=== PATIENT | female | born 1975 | race Caucasian/White ===

== ENCOUNTER 2019-02-24 17:12 | Emergency (ER) | payer SELFPAY ==
[2019-02-24] MEDS ORDERED: KETOROLAC TROMETHAMINE INJ 30 MG/ML VIAL IV ONE (18:35)
--- NOTE | 2019-02-24 18:51 | ED.PDOC ---
History of Present Illness - General Chief Complaint: Back Pain or Injury Stated Complaint: BACK PAIN Time Seen by Provider: 02/24/19 18:34 Source: patient Exam Limitations: no limitations - History of Present Illness Initial Comments: Patient presents with lower back pain for 5 days. She says it started after she lifted a heavy object out of the car. The pain is bilateral with occasional radiation down the right leg. Worse with movement, better with rest. Sharp in nature. Denies previous injuries to the lower back. No other complaints. Timing/Duration: other - 5 days Severity: moderate Improving Factors: rest Worsening Factors: movement Associated Symptoms: denies symptoms Allergies/Adverse Reactions: Allergies NO KNOWN ALLERGY Allergy (Verified 02/24/19 18:05) Home Medications: Ambulatory Orders Acetaminophen W/ Codeine [Tylenol W/ CODEINE #3] 1 ea PO Q6HRS PRN #15 02/24/19 Cyclobenzaprine HCl [Flexeril] 10 mg PO TID PRN #20 tab 02/24/19 Review of Systems - Review of Systems Constitutional: States: no symptoms reported EENTM: States: no symptoms reported Respiratory: States: no symptoms reported Cardiology: States: no symptoms reported Gastrointestinal/Abdominal: States: no symptoms reported Genitourinary: States: no symptoms reported Musculoskeletal: States: see HPI Skin: States: no symptoms reported Neurological: States: no symptoms reported Endocrine: States: no symptoms reported Hematologic/Lymphatic: States: no symptoms reported Family Medical History - Family History Mother Family History: No Known Physical Exam - Physical Exam General Appearance: Alert Respiratory: lungs clear, normal breath sounds Cardiovascular/Chest: normal peripheral pulses, regular rate, rhythm Gastrointestinal/Abdominal: normal bowel sounds, non tender, soft Back Exam: no vertebral tenderness, other - cross leg raise mildly positive at 45 degrees. straight leg rais negative. Patient's pain is too severe for heel walking test. 2+ patellar reflexes bilaterally DTR: 2+: Patellar, left, Patellar, right Skin Exam: normal color Progress - Progress Progress: 02/24/19 20:04 Laboratory Tests 02/24/19 02/24/19 16:15 18:15 Urine Color Yellow Urine Appearance Sl cloudy Urine pH 7.0 Ur Specific [place] 1.020 Urine Protein Negative Urine Glucose (UA) Negative Urine Ketones Negative Urine Blood Moderate H Urine Nitrite Negative Urine Bilirubin Negative Urine Urobilinogen 0.2 Ur Leukocyte Esterase Negative Urine RBC 0-1 Urine WBC 1-3 Ur Epithelial Cells 1-3 Amorphous Sediment 3+ Urine Bacteria 1+ Urine HCG, Qual Negative Radiographs of the lumbar vertebrae show no fracture. Patient given Toradol 30 mg IM x one in the E.D. with significant pain reduction. Given RX for Tylenol #3 and Flexeril with instructions to follow up with her pcp next week. Care instructions given. E.R. warnings given. Questions were elicited and answered. Patient voiced understanding and agreement with the plan. Departure - Departure Clinical Impression: Low back sprain Disposition: Discharge to Home or Self Care Condition: Good Departure Forms: ED Discharge - Pt. Copy, Patient Portal Self Enrollment Instructions: DI for Low Back Pain, DI for Back Strain or Sprain Diet: resume usual diet Activity: increase activity as tolerated Prescriptions: Acetaminophen W/ Codeine [Tylenol W/ CODEINE #3] 1 ea PO Q6HRS PRN #15 PRN Reason: Pain Cyclobenzaprine HCl [Flexeril] 10 mg PO TID PRN #20 tab PRN Reason: Pain Home Medications: Ambulatory Orders Acetaminophen W/ Codeine [Tylenol W/ CODEINE #3] 1 ea PO Q6HRS PRN #15 02/24/19 Cyclobenzaprine HCl [Flexeril] 10 mg PO TID PRN #20 tab 02/24/19 Additional Instructions: See your regular doctor next week for further evaluation. Activity as tolerated. Do not lift more than 10 pounds for the next two weeks. Take medications as prescribed. Do not drive or drink alcohol after taking the prescribed pain medications.
[2019-02-24] MEDS ORDERED: KETOROLAC TROMETHAMINE INJ 30 MG/ML VIAL IM ONE (19:01)
[2019-02-24 19:41] VITALS: O2SAT 100
--- NOTE | 2019-02-24 19:57 | RAD ---
EXAM DESCRIPTION: Lumbar Spine 3 Views CLINICAL HISTORY: 43 years Female back pain after lifting heavy object COMPARISON: None TECHNIQUE: AP and lateral views of the lumbar spine as well as a coned down lateral view of the lumbosacral junction are obtained. FINDINGS: OSSEOUS: There are no discernible acute fractures or osteolytic/blastic lesions. There is no evidence of dislocation or subluxation. Vertebral body heights are maintained. There is mild narrowing of the disc space at L4-5. Other disc spaces are maintained. Mild vertebral body marginal osteophytosis noted from L2 through L5 indicating lumbar spondylosis. The alignment is normal with the exception of slight retrolisthesis of L2 relative to L3. The visualized SI joints are preserved and sacral foraminal lines are intact. SOFT TISSUES The paraspinous and presacral soft tissues are unremarkable. IMPRESSION: No acute osseous abnormalities. Multilevel lumbar spondylosis. Electronically signed by: Ita Arroyo MD 02/24/2019 7:56 PM CDT
[2019-02-24] MEDS ORDERED: ACETAMINOPHEN W/COD #3 TAB (ER Disp) PO ONE (20:09)
[2019-02-24 22:02] VITALS: BP 128/96; TEMP 98.9
== END 2019-02-24 20:23 | disposition home or self-care (01) ==
LOC: ER 17:12
DX: S33.5XXA Sprain of ligaments of lumbar spine, initial encounter (principal); X50.0XXA Overexertion from strenuous movement or load, initial encounter; Y92.810 Car as the place of occurrence of the external cause